=== PATIENT | female | born 1975 | race Caucasian/White ===

== ENCOUNTER 2018-10-31 05:44 | Inpatient (IN) | payer MEDICARE, OTHER ==
[2018-10-31 06:26] LABS: ADD MAN DIFF? NO
[2018-10-31 06:30] LABS: BASOPHIL # 0.1 10^3/ul (0.0-0.1); BASOPHILS % 0.9 % (0.0-2.0); EOSINOPHILS # 0.2 10^3/ul (0.0-0.5); HEMATOCRIT 40.3 % (37.0-47.0); LYMPHOCYTES # 3.3 10^3/ul (0.8-2.9); MEAN CORPUSCULAR HEMOGLOBIN 30.3 pg (29.0-33.0); MEAN CORPUSCULAR HGB CONC 32.3 g/dl (32.0-37.0); MEAN CORPUSCULAR VOLUME 93.9 fl (82.0-101.0); MEAN PLATELET VOLUME 10.9 fl (7.4-10.4); MONOCYTE # 0.8 10^3/ul (0.3-0.9); MONOCYTES % 8.8 % (0.0-11.0); NEUTROPHIL # 4.2 10^3/ul (1.6-7.5); NEUTROPHILS % 49.1 % (39.0-77.0); PLATELET COUNT 351 10^3/UL (140-415); RED BLOOD COUNT 4.29 10^6/ul (4.20-5.40)
[2018-10-31 06:30] LABS: WHITE BLOOD COUNT 8.6 10^3/ul (4.8-10.8)
[2018-10-31 06:52] LABS: INR 1.06; PARTIAL THROMBOPLASTIN TIME 28.5 Sec (23.0-35.0); PROTIME 13.9 Sec (11.9-14.9); PT RATIO 1.1
[2018-10-31] MEDS ORDERED: EPHEDrine 25 MG/5 ML SYG (07:00)
[2018-10-31] MEDS ORDERED: PHENYLephrine (100 MCG/ML) 10ML SYG (07:00)
[2018-10-31 07:03] LABS: ALANINE AMINOTRANSFERASE 27 IU/L (13-69); ALBUMIN/GLOBULIN RATIO 1.17; ALKALINE PHOSPHATASE 108 IU/L (42-121); ANION GAP 7 (5-13); ASPARTATE AMINO TRANSFERASE 33 IU/L (15-46); BILIRUBIN,INDIRECT 0.5 mg/dl (0-1.1); BILIRUBIN,TOTAL 0.5 mg/dl (0.2-1.3); BLOOD UREA NITROGEN 11 mg/dl (7-20); CALCIUM 9.4 mg/dl (8.4-10.2); CARBON DIOXIDE 30 mmol/L (21-31); CHLORIDE 108 mmol/L (97-110); CREATININE 0.62 mg/dl (0.44-1.00); Estimated GFR > 60 mL/min (>60); GLUCOSE 98 mg/dl (70-220); POTASSIUM 4.1 mmol/L (3.5-5.1); TOTAL PROTEIN 7.4 g/dl (6.1-8.1)
[2018-10-31 07:29] LABS: SODIUM 145 mmol/L (135-144)
[2018-10-31] MEDS ORDERED: CEFAZOLIN 1 GM INJ (07:49)
[2018-10-31] MEDS ORDERED: PROPOFOL 20 ML (07:49)
[2018-10-31] MEDS ORDERED: MIDAZOLAM 1 MG/ML 2 ML INJ (07:49)
[2018-10-31] MEDS ORDERED: ONDANSETRON 4 MG INJ (07:49)
[2018-10-31] MEDS ORDERED: ROCURONIUM 50 MG INJ (07:49)
[2018-10-31] MEDS ORDERED: SUCCINYLCHOLINE CHLORIDE 100 MG/5 ML SYG IV (07:49)
[2018-10-31] MEDS ORDERED: DEXAMETHASONE 4 MG/ML 5 ML INJ (07:49)
[2018-10-31] MEDS ORDERED: LIDOCAINE 1% (MDV) 20 ML INJ (07:49)
[2018-10-31] MEDS ORDERED: HYDROmorphONE 1 MG/5 ML IV SYRINGE IV (08:00)
[2018-10-31] MEDS: POLYMYXIN/BACITRACIN 1L IRRIG (09:30)
[2018-10-31] MEDS: GELATIN SIZE 100 SPONGE (09:30)
[2018-10-31] MEDS: THROMBIN 5000 UNIT VIAL (09:30)
[2018-10-31] MEDS: ROPIVACAINE 0.5 % 30 ML VIAL (09:30)
[2018-10-31] MEDS: SURGIFOAM POWDER 1 GM KIT (09:30)
[2018-10-31] MEDS ORDERED: FENTAnyl 50 MCG/ML VIAL (11:06)
[2018-10-31] MEDS: HYDROmorphONE 1 MG/5 ML IV SYRINGE IV ×2 (11:26→11:35)
[2018-10-31] MEDS ORDERED: ONDANSETRON 4 MG INJ IV (11:30)
[2018-10-31] MEDS ORDERED: ACETAMINOPHEN 325 MG TAB PO (11:30)
[2018-10-31] MEDS ORDERED: AL HYDROX/MG HYDROX/SIMETH 30 ML CUP PO (11:30)
[2018-10-31] MEDS ORDERED: NALOXONE (0.4 MG/ML) INJ IV (11:30)
[2018-10-31] MEDS ORDERED: NACL 0.9% 3 ML SYG IV (11:30)
[2018-10-31] MEDS: HYDROCODONE/APAP (5/325) TAB PO ×2 (11:43→23:22)
[2018-10-31] MEDS ORDERED: HYDROmorphONE 0.2 MG/ML PCA (12:14)
[2018-10-31] MEDS: HYDROmorphONE 0.2 MG/ML PCA IV ×2 (12:25→21:19)
[2018-10-31] MEDS: NS + KCL 20 MEQ 1,000 ML IV ×2 (14:02→20:54)
[2018-10-31] MEDS: DOCUSATE SODIUM 100 MG CAP PO ×2 (14:14→20:54)
[2018-10-31] MEDS: CEFAZOLIN 2 GM/50 ML (PMX) 50 ML IVPB ×2 (16:35→20:53)
[2018-10-31] MEDS: HYDROmorphONE 1 MG/ML SYG IV (21:43)
[2018-11-01] MEDS: HYDROmorphONE 1 MG/ML SYG IV ×7 (01:36→21:03)
[2018-11-01] MEDS: HYDROCODONE/APAP (5/325) TAB PO ×2 (04:09→12:33)
[2018-11-01 05:45] LABS: HEMATOCRIT 31.9 % (37.0-47.0); HEMOGLOBIN 10.2 g/dl (12.0-16.0)
[2018-11-01] MEDS: CEFAZOLIN 2 GM/50 ML (PMX) 50 ML IVPB ×3 (05:51→21:00)
[2018-11-01 06:14] LABS: ANION GAP 4 (5-13); BLOOD UREA NITROGEN 10 mg/dl (7-20); CALCIUM 8.5 mg/dl (8.4-10.2); CARBON DIOXIDE 30 mmol/L (21-31); CHLORIDE 107 mmol/L (97-110); Estimated GFR > 60 mL/min (>60); GLUCOSE 85 mg/dl (70-220); POTASSIUM 4.3 mmol/L (3.5-5.1); SODIUM 141 mmol/L (135-144)
[2018-11-01] MEDS: DOCUSATE SODIUM 100 MG CAP PO ×2 (08:17→20:59)
[2018-11-01] MEDS: KETOROLAC 30 MG INJ IV ×4 (09:21→20:59)
[2018-11-01] MEDS: NS + KCL 20 MEQ 1,000 ML IV (10:35)
[2018-11-02] MEDS: KETOROLAC 30 MG INJ IV ×6 (00:59→21:06)
[2018-11-02] MEDS: HYDROmorphONE 1 MG/ML SYG IV ×11 (01:00→23:07)
[2018-11-02] MEDS: HYDROmorphONE 0.2 MG/ML PCA IV ×3 (04:32→22:27)
[2018-11-02] MEDS: CEFAZOLIN 2 GM/50 ML (PMX) 50 ML IVPB ×2 (05:01→13:42)
[2018-11-02] MEDS: DOCUSATE SODIUM 100 MG CAP PO ×2 (09:22→21:05)
[2018-11-03] MEDS: HYDROmorphONE 1 MG/ML SYG IV ×11 (01:23→22:10)
[2018-11-03] MEDS: KETOROLAC 30 MG INJ IV ×2 (01:44→05:33)
[2018-11-03] MEDS: HYDROmorphONE 0.2 MG/ML PCA IV ×3 (04:19→18:02)
[2018-11-03] MEDS: DOCUSATE SODIUM 100 MG CAP PO ×2 (08:39→20:04)
[2018-11-04] MEDS: HYDROmorphONE 1 MG/ML SYG IV ×12 (00:09→23:18)
[2018-11-04] MEDS: HYDROmorphONE 0.2 MG/ML PCA IV ×3 (01:57→17:20)
[2018-11-04] MEDS: DOCUSATE SODIUM 100 MG CAP PO ×2 (09:12→20:34)
[2018-11-05] MEDS: HYDROmorphONE 0.2 MG/ML PCA IV (01:18)
[2018-11-05] MEDS: HYDROmorphONE 1 MG/ML SYG IV ×6 (01:24→11:52)
[2018-11-05 05:14] LABS: ADD MAN DIFF? NO
[2018-11-05 05:18] LABS: BASOPHILS % 0.6 % (0.0-2.0); EOSINOPHILS # 0.5 10^3/ul (0.0-0.5); EOSINOPHILS % 7.1 % (0.0-7.0); HEMATOCRIT 33.5 % (37.0-47.0); HEMOGLOBIN 10.6 g/dl (12.0-16.0); LYMPHOCYTES # 2.6 10^3/ul (0.8-2.9); LYMPHOCYTES % 37.5 % (15.0-51.0); MEAN CORPUSCULAR HEMOGLOBIN 29.9 pg (29.0-33.0); MEAN CORPUSCULAR HGB CONC 31.6 g/dl (32.0-37.0); MEAN CORPUSCULAR VOLUME 94.6 fl (82.0-101.0); MEAN PLATELET VOLUME 10.7 fl (7.4-10.4); MONOCYTE # 0.7 10^3/ul (0.3-0.9); MONOCYTES % 9.9 % (0.0-11.0); NEUTROPHIL # 3.1 10^3/ul (1.6-7.5); NEUTROPHILS % 44.8 % (39.0-77.0); PLATELET COUNT 331 10^3/UL (140-415); RED BLOOD COUNT 3.54 10^6/ul (4.20-5.40); RED CELL DISTRIBUTION WIDTH 12.7 % (11.5-14.5)
[2018-11-05 05:18] LABS: WHITE BLOOD COUNT 6.9 10^3/ul (4.8-10.8)
[2018-11-05 05:39] LABS: ANION GAP 5 (5-13); BLOOD UREA NITROGEN 10 mg/dl (7-20); CALCIUM 8.6 mg/dl (8.4-10.2); CARBON DIOXIDE 34 mmol/L (21-31); CHLORIDE 101 mmol/L (97-110); CREATININE 0.57 mg/dl (0.44-1.00); Estimated GFR > 60 mL/min (>60); GLUCOSE 97 mg/dl (70-220); POTASSIUM 4.3 mmol/L (3.5-5.1); SODIUM 140 mmol/L (135-144)
[2018-11-05] MEDS: DOCUSATE SODIUM 100 MG CAP PO ×2 (07:53→20:06)
[2018-11-05] MEDS: HYDROCODONE/APAP (5/325) TAB PO (10:50)
[2018-11-05] MEDS: HYDROmorphONE 2 MG/ML SYG IV ×5 (13:51→22:13)
[2018-11-05] MEDS ORDERED: HYDROmorphONE 2 MG TAB PO (16:00)
[2018-11-06] MEDS: HYDROmorphONE 2 MG/ML SYG IV ×12 (00:14→23:27)
[2018-11-06] MEDS: DOCUSATE SODIUM 100 MG CAP PO ×2 (09:00→20:58)
[2018-11-06] MEDS ORDERED: BISACODYL (EC) 5 MG TAB PO (23:00)
[2018-11-07] MEDS: HYDROmorphONE 2 MG/ML SYG IV ×11 (01:30→22:01)
[2018-11-07] MEDS: DOCUSATE SODIUM 100 MG CAP PO ×2 (08:54→20:52)
[2018-11-08] MEDS: HYDROmorphONE 2 MG/ML SYG IV ×12 (02:02→22:18)
[2018-11-08] MEDS: DOCUSATE SODIUM 100 MG CAP PO ×2 (08:44→20:23)
[2018-11-08] MEDS: FERROUS SULFATE (EC) 325 MG TAB PO (11:59)
[2018-11-09] MEDS: HYDROmorphONE 2 MG/ML SYG IV ×10 (00:22→18:42)
[2018-11-09 05:33] LABS: ADD MAN DIFF? NO
[2018-11-09 05:43] LABS: BASOPHIL # 0.1 10^3/ul (0.0-0.1); BASOPHILS % 0.9 % (0.0-2.0); EOSINOPHILS # 0.6 10^3/ul (0.0-0.5); EOSINOPHILS % 8.8 % (0.0-7.0); HEMATOCRIT 33.1 % (37.0-47.0); HEMOGLOBIN 10.5 g/dl (12.0-16.0); LYMPHOCYTES # 2.9 10^3/ul (0.8-2.9); MEAN CORPUSCULAR HEMOGLOBIN 29.9 pg (29.0-33.0); MEAN CORPUSCULAR HGB CONC 31.7 g/dl (32.0-37.0); MEAN CORPUSCULAR VOLUME 94.3 fl (82.0-101.0); MEAN PLATELET VOLUME 10.6 fl (7.4-10.4); MONOCYTE # 0.6 10^3/ul (0.3-0.9); MONOCYTES % 9.4 % (0.0-11.0); NEUTROPHIL # 2.5 10^3/ul (1.6-7.5); NEUTROPHILS % 37.8 % (39.0-77.0); PLATELET COUNT 402 10^3/UL (140-415); RED BLOOD COUNT 3.51 10^6/ul (4.20-5.40); RED CELL DISTRIBUTION WIDTH 12.6 % (11.5-14.5)
[2018-11-09 05:43] LABS: WHITE BLOOD COUNT 6.7 10^3/ul (4.8-10.8)
[2018-11-09 06:11] LABS: ANION GAP 5 (5-13); BLOOD UREA NITROGEN 10 mg/dl (7-20); CALCIUM 8.9 mg/dl (8.4-10.2); CARBON DIOXIDE 34 mmol/L (21-31); CHLORIDE 102 mmol/L (97-110); CREATININE 0.55 mg/dl (0.44-1.00); Estimated GFR > 60 mL/min (>60); GLUCOSE 89 mg/dl (70-220); SODIUM 141 mmol/L (135-144)
[2018-11-09] MEDS: FERROUS SULFATE (EC) 325 MG TAB PO (08:48)
[2018-11-09] MEDS: DOCUSATE SODIUM 100 MG CAP PO (08:48)
== END 2018-11-09 19:20 | disposition home or self-care (01) | DRG 454 ==
LOC: REC 05:44 → 6WM 13:22 → MS1 11-06 13:38
PROC: 0SG00AJ Fusion of Lumbar Vertebral Joint with Interbody Fusion Device, Posterior Approach, Anterior Column, Open Approach (ICD-10-PCS; principal; 2018-10-31 07:30)
PROC: 0SG03K1 Fusion of Lumbar Vertebral Joint with Nonautologous Tissue Substitute, Posterior Approach, Posterior Column, Percutaneous Approach (ICD-10-PCS; 2018-10-31 07:30)
PROC: 0SB20ZZ Excision of Lumbar Vertebral Disc, Open Approach (ICD-10-PCS; 2018-10-31 07:30)
PROC: 01NB0ZZ Release Lumbar Nerve, Open Approach (ICD-10-PCS; 2018-10-31 07:30)
PROC: 0SP304Z Removal of Internal Fixation Device from Lumbosacral Joint, Open Approach (ICD-10-PCS; 2018-10-31 07:30)
PROC: 0SG33K1 Fusion of Lumbosacral Joint with Nonautologous Tissue Substitute, Posterior Approach, Posterior Column, Percutaneous Approach (ICD-10-PCS; 2018-10-31 07:30)
PROC: 01BB0ZZ Excision of Lumbar Nerve, Open Approach (ICD-10-PCS; 2018-10-31 07:30)
PROC: 4A11X4G Monitoring of Peripheral Nervous Electrical Activity, Intraoperative, External Approach (ICD-10-PCS; 2018-10-31 07:30)
DX: M47.26 Other spondylosis with radiculopathy, lumbar region (principal); D62 Acute posthemorrhagic anemia; E88.2 Lipomatosis, not elsewhere classified; E66.9 Obesity, unspecified; F32.9 Major depressive disorder, single episode, unspecified; G89.18 Other acute postprocedural pain; I10 Essential (primary) hypertension; Z68.27 Body mass index [BMI] 27.0-27.9, adult; Z98.1 Arthrodesis status; Z98.84 Bariatric surgery status
CPT/HCPCS: 71045; 72100; 72131; 80048; 80053; 85014; 85018; 85025; 85610; 85730; 86850; 86900; 86901; 87086; 88300; 88304; 88311; 93005; 97110; 97116; 97161; 97530

== ENCOUNTER 2018-11-16 18:05 | Emergency (ER) | payer MEDICARE, OTHER ==
[2018-11-16] MEDS: ONDANSETRON (ODT) 4 MG TAB ODT (20:34)
[2018-11-16] MEDS: HYDROmorphONE 2 MG/ML SYG IM (20:35)
[2018-11-16] MEDS: KETOROLAC 30 MG INJ IM ×2 (22:17→22:27)
== END 2018-11-16 22:20 | disposition home or self-care (01) ==
LOC: FTE 22:20
DX: G89.18 Other acute postprocedural pain (principal); M54.41 Lumbago with sciatica, right side
CPT/HCPCS: 72131; 96372; 99285-25

== ENCOUNTER 2018-11-20 16:05 | Inpatient (IN) | payer MEDICARE, OTHER ==
[2018-11-20 20:37] LABS: ADD MAN DIFF? NO
[2018-11-20 20:39] LABS: WHITE BLOOD COUNT 6.7 10^3/ul (4.8-10.8)
[2018-11-20 20:39] LABS: BASOPHIL # 0.1 10^3/ul (0.0-0.1); EOSINOPHILS # 0.6 10^3/ul (0.0-0.5); EOSINOPHILS % 8.9 % (0.0-7.0); HEMATOCRIT 34.8 % (37.0-47.0); HEMOGLOBIN 11.1 g/dl (12.0-16.0); LYMPHOCYTES % 44.9 % (15.0-51.0); MEAN CORPUSCULAR HEMOGLOBIN 29.8 pg (29.0-33.0); MEAN CORPUSCULAR HGB CONC 31.9 g/dl (32.0-37.0); MEAN CORPUSCULAR VOLUME 93.3 fl (82.0-101.0); MEAN PLATELET VOLUME 10.2 fl (7.4-10.4); MONOCYTE # 0.4 10^3/ul (0.3-0.9); MONOCYTES % 6.3 % (0.0-11.0); NEUTROPHIL # 2.6 10^3/ul (1.6-7.5); NEUTROPHILS % 38.6 % (39.0-77.0); PLATELET COUNT 458 10^3/UL (140-415); RED BLOOD COUNT 3.73 10^6/ul (4.20-5.40); RED CELL DISTRIBUTION WIDTH 12.6 % (11.5-14.5)
[2018-11-20] MEDS: HYDROmorphONE 1 MG/ML SYG IV (20:40)
[2018-11-20] MEDS: LACTATED RINGER'S 1,000 ML IV (20:40)
[2018-11-20 20:59] LABS: ANION GAP 7 (5-13); BLOOD UREA NITROGEN 9 mg/dl (7-20); CALCIUM 8.6 mg/dl (8.4-10.2); CARBON DIOXIDE 30 mmol/L (21-31); CHLORIDE 105 mmol/L (97-110); CREATININE 0.72 mg/dl (0.44-1.00); Estimated GFR > 60 mL/min (>60); GLUCOSE 89 mg/dl (70-220); POTASSIUM 3.8 mmol/L (3.5-5.1); SODIUM 142 mmol/L (135-144)
[2018-11-20 21:07] LABS: INR 1.04; PROTIME 13.7 Sec (11.9-14.9); PT RATIO 1.1
[2018-11-20 21:08] LABS: PARTIAL THROMBOPLASTIN TIME 28.6 Sec (23.0-35.0)
[2018-11-20] MEDS: FAMOTIDINE 20 MG INJ IV (21:23)
[2018-11-20] MEDS ORDERED: NACL 0.9% 3 ML SYG IV (21:30)
[2018-11-20] MEDS ORDERED: ONDANSETRON 4 MG INJ IV (21:30)
[2018-11-20 21:57] LABS: ADD UMIC YES; UR ASCORBIC ACID NEGATIVE (NEGATIVE); UR BILIRUBIN (Dip) NEGATIVE (NEGATIVE); UR BLOOD (Dip) 1+ mg/dL (NEGATIVE); UR CLARITY CLEAR (CLEAR); UR COLOR YELLOW (YELLOW); UR GLUCOSE (Dip) NEGATIVE (NEGATIVE); UR KETONES (Dip) NEGATIVE (NEGATIVE); UR LEUKOCYTE ESTERASE (Dip) 2+ Leu/ul (NEGATIVE); UR NITRITE (Dip) NEGATIVE (NEGATIVE); UR RBC 4 /HPF (0-5); UR SPECIFIC GRAVITY (Dip) 1.012 (1.003-1.030); UR SQUAMOUS EPITHELIAL CELL FEW /HPF (FEW); UR TOTAL PROTEIN (Dip) NEGATIVE (NEGATIVE); UR UROBILINOGEN (Dip) NEGATIVE (NEGATIVE); UR WBC 42 /HPF (0-5)
[2018-11-20] MEDS: HYDROmorphONE 0.5 MG/0.5 ML SYG IV (23:00)
[2018-11-21] MEDS: HYDROmorphONE 0.5 MG/0.5 ML SYG IV (00:30)
[2018-11-21] MEDS: HYDROmorphONE 1 MG/ML SYG IV ×6 (04:39→21:36)
[2018-11-21 08:10] LABS: ADD MAN DIFF? NO
[2018-11-21 08:18] LABS: WHITE BLOOD COUNT 6.4 10^3/ul (4.8-10.8)
[2018-11-21 08:18] LABS: BASOPHIL # 0.1 10^3/ul (0.0-0.1); BASOPHILS % 0.9 % (0.0-2.0); EOSINOPHILS # 0.7 10^3/ul (0.0-0.5); EOSINOPHILS % 10.1 % (0.0-7.0); HEMATOCRIT 29.7 % (37.0-47.0); HEMOGLOBIN 9.6 g/dl (12.0-16.0); LYMPHOCYTES # 2.9 10^3/ul (0.8-2.9); LYMPHOCYTES % 45.2 % (15.0-51.0); MEAN CORPUSCULAR HEMOGLOBIN 30.6 pg (29.0-33.0); MEAN CORPUSCULAR HGB CONC 32.3 g/dl (32.0-37.0); MEAN CORPUSCULAR VOLUME 94.6 fl (82.0-101.0); MEAN PLATELET VOLUME 10.8 fl (7.4-10.4); MONOCYTE # 0.5 10^3/ul (0.3-0.9); MONOCYTES % 7.5 % (0.0-11.0); NEUTROPHIL # 2.3 10^3/ul (1.6-7.5); PLATELET COUNT 361 10^3/UL (140-415); RED BLOOD COUNT 3.14 10^6/ul (4.20-5.40); RED CELL DISTRIBUTION WIDTH 12.7 % (11.5-14.5)
[2018-11-21 08:39] LABS: ALANINE AMINOTRANSFERASE 15 IU/L (13-69); ALBUMIN 2.9 g/dl (3.3-4.9); ALKALINE PHOSPHATASE 87 IU/L (42-121); ANION GAP 7 (5-13); ASPARTATE AMINO TRANSFERASE 18 IU/L (15-46); BILIRUBIN,INDIRECT 0.3 mg/dl (0-1.1); BILIRUBIN,TOTAL 0.3 mg/dl (0.2-1.3); BLOOD UREA NITROGEN 8 mg/dl (7-20); CALCIUM 8.5 mg/dl (8.4-10.2); CARBON DIOXIDE 30 mmol/L (21-31); CHLORIDE 106 mmol/L (97-110); CREATININE 0.56 mg/dl (0.44-1.00); Estimated GFR > 60 mL/min (>60); GLUCOSE 133 mg/dl (70-220); POTASSIUM 3.5 mmol/L (3.5-5.1); SODIUM 143 mmol/L (135-144); TOTAL PROTEIN 5.8 g/dl (6.1-8.1)
[2018-11-21] MEDS: FAMOTIDINE 20 MG INJ IV (08:39)
[2018-11-21] MEDS: ENOXAPARIN 30 MG/0.3 ML SYG SC (08:42)
[2018-11-21 11:33] LABS: HEMOGLOBIN A1C 5.4 % (0-5.9)
[2018-11-21] MEDS: FAMOTIDINE 20 MG TAB PO (21:31)
[2018-11-21] MEDS: oxyCODONE (CR) 10 MG TAB [oxyCONTIN] PO (23:11)
[2018-11-22] MEDS: HYDROmorphONE 1 MG/ML SYG IV ×7 (00:42→15:13)
[2018-11-22 08:15] LABS: ADD MAN DIFF? NO
[2018-11-22 08:19] LABS: BASOPHIL # 0.1 10^3/ul (0.0-0.1); BASOPHILS % 0.7 % (0.0-2.0); EOSINOPHILS # 0.6 10^3/ul (0.0-0.5); EOSINOPHILS % 8.2 % (0.0-7.0); HEMATOCRIT 32.7 % (37.0-47.0); HEMOGLOBIN 10.5 g/dl (12.0-16.0); LYMPHOCYTES # 2.6 10^3/ul (0.8-2.9); LYMPHOCYTES % 36.2 % (15.0-51.0); MEAN CORPUSCULAR HGB CONC 32.1 g/dl (32.0-37.0); MEAN CORPUSCULAR VOLUME 93.4 fl (82.0-101.0); MEAN PLATELET VOLUME 10.9 fl (7.4-10.4); MONOCYTE # 0.5 10^3/ul (0.3-0.9); MONOCYTES % 7.2 % (0.0-11.0); NEUTROPHIL # 3.3 10^3/ul (1.6-7.5); NEUTROPHILS % 47.4 % (39.0-77.0); PLATELET COUNT 394 10^3/UL (140-415); RED CELL DISTRIBUTION WIDTH 12.7 % (11.5-14.5)
[2018-11-22 08:45] LABS: ANION GAP 3 (5-13); BLOOD UREA NITROGEN 8 mg/dl (7-20); CALCIUM 8.9 mg/dl (8.4-10.2); CARBON DIOXIDE 33 mmol/L (21-31); CHLORIDE 106 mmol/L (97-110); CHOL/HDL RATIO 2.7 RATIO; CHOLESTEROL 93 mg/dl (100-200); CREATININE 0.59 mg/dl (0.44-1.00); Estimated GFR > 60 mL/min (>60); GLUCOSE 89 mg/dl (70-220); HDL CHOLESTEROL 34 mg/dl (34-88); LDL CHOLESTEROL,CALCULATED 46 mg/dl; SODIUM 142 mmol/L (135-144); TRIGLYCERIDES 63 mg/dl (0-149)
[2018-11-22 09:00] LABS: FREE T4 (FREE THYROXINE) 0.79 ng/dl (0.64-1.79)
[2018-11-22 09:14] LABS: THYROID STIMULATING HORMONE 0.445 MIU/L (0.465-4.680)
[2018-11-22] MEDS: DOCUSATE SODIUM 100 MG CAP PO ×2 (09:40→21:11)
[2018-11-22] MEDS: FAMOTIDINE 20 MG TAB PO ×2 (09:40→21:11)
[2018-11-22] MEDS: oxyCODONE (CR) 10 MG TAB [oxyCONTIN] PO (09:40)
[2018-11-22] MEDS: ENOXAPARIN 30 MG/0.3 ML SYG SC (09:43)
[2018-11-22] MEDS ORDERED: POLYETHYLENE GLYCOL 17 GM PACKET (17:40)
[2018-11-22] MEDS ORDERED: HYDROmorphONE 0.2 MG/ML PCA (17:40)
[2018-11-22] MEDS ORDERED: METHYLPREDNISOLONE 40 MG INJ (17:40)
[2018-11-22] MEDS: HYDROmorphONE 0.2 MG/ML PCA IV ×2 (18:06→23:14)
[2018-11-22] MEDS: POLYETHYLENE GLYCOL 17 GM PACKET PO (18:26)
[2018-11-22] MEDS: METHYLPREDNISOLONE 125 MG INJ IV ×2 (18:29→22:00)
[2018-11-22] MEDS ORDERED: oxyCODONE (CR) 20 MG TAB [oxyCONTIN] PO (21:00)
[2018-11-22] MEDS: SENNA/DOCUSATE NA (8.6MG/50MG) TAB PO (21:11)
[2018-11-23] MEDS: HYDROmorphONE 0.2 MG/ML PCA IV ×5 (03:56→22:29)
[2018-11-23 05:36] LABS: ADD MAN DIFF? NO
[2018-11-23 05:44] LABS: BASOPHILS % 0.6 % (0.0-2.0); HEMATOCRIT 35.5 % (37.0-47.0); HEMOGLOBIN 11.4 g/dl (12.0-16.0); LYMPHOCYTES # 1.7 10^3/ul (0.8-2.9); LYMPHOCYTES % 24.6 % (15.0-51.0); MEAN CORPUSCULAR HEMOGLOBIN 29.6 pg (29.0-33.0); MEAN CORPUSCULAR HGB CONC 32.1 g/dl (32.0-37.0); MEAN CORPUSCULAR VOLUME 92.2 fl (82.0-101.0); MEAN PLATELET VOLUME 10.6 fl (7.4-10.4); MONOCYTE # 0.3 10^3/ul (0.3-0.9); MONOCYTES % 3.6 % (0.0-11.0); NEUTROPHIL # 4.9 10^3/ul (1.6-7.5); NEUTROPHILS % 70.8 % (39.0-77.0); PLATELET COUNT 446 10^3/UL (140-415); RED BLOOD COUNT 3.85 10^6/ul (4.20-5.40); RED CELL DISTRIBUTION WIDTH 12.7 % (11.5-14.5)
[2018-11-23] MEDS: METHYLPREDNISOLONE 125 MG INJ IV ×3 (06:08→21:46)
[2018-11-23 06:18] LABS: ANION GAP 6 (5-13); BLOOD UREA NITROGEN 8 mg/dl (7-20); CALCIUM 9.1 mg/dl (8.4-10.2); CARBON DIOXIDE 30 mmol/L (21-31); CHLORIDE 107 mmol/L (97-110); CREATININE 0.47 mg/dl (0.44-1.00); Estimated GFR > 60 mL/min (>60); GLUCOSE 113 mg/dl (70-220); POTASSIUM 4.2 mmol/L (3.5-5.1); SODIUM 143 mmol/L (135-144)
[2018-11-23 06:51] LABS: CHOL/HDL RATIO 2.4 RATIO; HDL CHOLESTEROL 44 mg/dl (34-88); LDL CHOLESTEROL,CALCULATED 56 mg/dl
[2018-11-23 06:51] LABS: CHOLESTEROL 109 mg/dl (100-200)
[2018-11-23 07:24] LABS: TRIGLYCERIDES 45 mg/dl (0-149)
[2018-11-23] MEDS: POLYETHYLENE GLYCOL 17 GM PACKET PO (09:00)
[2018-11-23] MEDS: FAMOTIDINE 20 MG TAB PO ×2 (09:19→20:27)
[2018-11-23] MEDS: DOCUSATE SODIUM 100 MG CAP PO ×2 (09:19→20:27)
[2018-11-23] MEDS: SENNA/DOCUSATE NA (8.6MG/50MG) TAB PO ×2 (09:19→20:27)
[2018-11-23] MEDS: ENOXAPARIN 30 MG/0.3 ML SYG SC (09:20)
[2018-11-23] MEDS: ACETAMINOPHEN 325 MG TAB PO (10:51)
[2018-11-23] MEDS: BENAZEPRIL 10 MG TAB PO (15:50)
[2018-11-24] MEDS: HYDROmorphONE 0.2 MG/ML PCA IV ×5 (03:02→22:18)
[2018-11-24] MEDS: METHYLPREDNISOLONE 125 MG INJ IV ×3 (05:12→22:19)
[2018-11-24] MEDS: SENNA/DOCUSATE NA (8.6MG/50MG) TAB PO ×2 (08:48→20:05)
[2018-11-24] MEDS: FAMOTIDINE 20 MG TAB PO ×2 (08:48→20:03)
[2018-11-24] MEDS: DOCUSATE SODIUM 100 MG CAP PO ×2 (08:48→20:03)
[2018-11-24] MEDS: BENAZEPRIL 10 MG TAB PO (08:50)
[2018-11-24] MEDS: ENOXAPARIN 30 MG/0.3 ML SYG SC (08:52)
[2018-11-24] MEDS: POLYETHYLENE GLYCOL 17 GM PACKET PO (08:53)
[2018-11-24] MEDS: ACETAMINOPHEN 325 MG TAB PO ×2 (13:53→20:03)
[2018-11-25] MEDS: HYDROmorphONE 0.2 MG/ML PCA IV ×4 (04:22→22:39)
[2018-11-25] MEDS: METHYLPREDNISOLONE 125 MG INJ IV ×3 (05:21→20:00)
[2018-11-25 08:25] LABS: ADD MAN DIFF? NO
[2018-11-25 08:29] LABS: BASOPHILS % 0.2 % (0.0-2.0); HEMATOCRIT 35.2 % (37.0-47.0); HEMOGLOBIN 11.3 g/dl (12.0-16.0); LYMPHOCYTES # 1.6 10^3/ul (0.8-2.9); MEAN CORPUSCULAR HEMOGLOBIN 30.1 pg (29.0-33.0); MEAN CORPUSCULAR HGB CONC 32.1 g/dl (32.0-37.0); MEAN CORPUSCULAR VOLUME 93.6 fl (82.0-101.0); MEAN PLATELET VOLUME 10.9 fl (7.4-10.4); MONOCYTE # 0.3 10^3/ul (0.3-0.9); MONOCYTES % 3.4 % (0.0-11.0); NEUTROPHILS % 77.8 % (39.0-77.0); PLATELET COUNT 409 10^3/UL (140-415); RED BLOOD COUNT 3.76 10^6/ul (4.20-5.40); RED CELL DISTRIBUTION WIDTH 12.5 % (11.5-14.5)
[2018-11-25 08:29] LABS: WHITE BLOOD COUNT 8.9 10^3/ul (4.8-10.8)
[2018-11-25 08:50] LABS: ANION GAP 7 (5-13); BLOOD UREA NITROGEN 11 mg/dl (7-20); CALCIUM 8.9 mg/dl (8.4-10.2); CARBON DIOXIDE 33 mmol/L (21-31); CHLORIDE 102 mmol/L (97-110); CREATININE 0.52 mg/dl (0.44-1.00); Estimated GFR > 60 mL/min (>60); GLUCOSE 108 mg/dl (70-220); POTASSIUM 4.3 mmol/L (3.5-5.1); SODIUM 142 mmol/L (135-144)
[2018-11-25] MEDS: POLYETHYLENE GLYCOL 17 GM PACKET PO (09:00)
[2018-11-25] MEDS: SENNA/DOCUSATE NA (8.6MG/50MG) TAB PO ×3 (09:00→20:00)
[2018-11-25] MEDS: BENAZEPRIL 10 MG TAB PO (09:18)
[2018-11-25] MEDS: FAMOTIDINE 20 MG TAB PO ×2 (09:18→20:00)
[2018-11-25] MEDS: DOCUSATE SODIUM 100 MG CAP PO ×2 (09:18→20:00)
[2018-11-25] MEDS: ENOXAPARIN 30 MG/0.3 ML SYG SC (09:19)
[2018-11-25] MEDS: HYDROmorphONE 0.5 MG/0.5 ML SYG IV ×2 (12:04→19:57)
[2018-11-26] MEDS: ZOLPIDEM 5 MG TAB PO ×2 (00:51→21:40)
[2018-11-26] MEDS: METHYLPREDNISOLONE 125 MG INJ IV ×3 (05:18→21:40)
[2018-11-26] MEDS: HYDROmorphONE 0.2 MG/ML PCA IV ×4 (05:18→19:56)
[2018-11-26] MEDS: POLYETHYLENE GLYCOL 17 GM PACKET PO ×2 (09:00→09:21)
[2018-11-26] MEDS: SENNA/DOCUSATE NA (8.6MG/50MG) TAB PO ×3 (09:00→20:12)
[2018-11-26] MEDS: BENAZEPRIL 10 MG TAB PO (09:20)
[2018-11-26] MEDS: DOCUSATE SODIUM 100 MG CAP PO ×2 (09:20→20:09)
[2018-11-26] MEDS: FAMOTIDINE 20 MG TAB PO ×2 (09:20→20:09)
[2018-11-26] MEDS: ENOXAPARIN 30 MG/0.3 ML SYG SC (09:24)
[2018-11-26] MEDS: DEXAMETHASONE 4 MG/ML 1 ML INJ IV ×2 (12:00→18:45)
[2018-11-26] MEDS ORDERED: GABAPENTIN (50 MG/ML PO SYG) PO (13:00)
[2018-11-26] MEDS ORDERED: GABAPENTIN (50 MG/ML PO SYG) NGT ×2 (13:00)
[2018-11-26] MEDS: GABAPENTIN 100 MG CAP PO ×2 (13:47→20:09)
[2018-11-26] MEDS: HYDROmorphONE 0.5 MG/0.5 ML SYG IV (20:05)
[2018-11-27] MEDS: DEXAMETHASONE 4 MG/ML 1 ML INJ IV ×4 (00:29→18:05)
[2018-11-27] MEDS: HYDROmorphONE 0.2 MG/ML PCA IV ×4 (00:52→15:46)
[2018-11-27] MEDS: POLYETHYLENE GLYCOL 17 GM PACKET PO (09:00)
[2018-11-27] MEDS: SENNA/DOCUSATE NA (8.6MG/50MG) TAB PO ×2 (09:47→21:00)
[2018-11-27] MEDS: DOCUSATE SODIUM 100 MG CAP PO ×2 (09:47→22:46)
[2018-11-27] MEDS: GABAPENTIN 100 MG CAP PO ×3 (09:48→22:46)
[2018-11-27] MEDS: BENAZEPRIL 10 MG TAB PO (09:48)
[2018-11-27] MEDS: FAMOTIDINE 20 MG TAB PO ×2 (09:48→22:46)
[2018-11-27] MEDS: ENOXAPARIN 30 MG/0.3 ML SYG SC (09:49)
[2018-11-27] MEDS: HYDROmorphONE 0.5 MG/0.5 ML SYG IV (15:57)
[2018-11-27] MEDS: HYDROmorphONE 1 MG/ML SYG IV ×2 (18:05→22:42)
[2018-11-27] MEDS: METHYLPREDNISOLONE ACET 80 MG/ML 1 ML INJ ×2 (21:00)
[2018-11-27] MEDS: ROPIVACAINE 0.5 % 30 ML VIAL INJ ×2 (21:00)
[2018-11-27] MEDS: ZOLPIDEM 5 MG TAB PO (23:30)
[2018-11-28] MEDS: DEXAMETHASONE 4 MG/ML 1 ML INJ IV ×4 (00:42→17:39)
[2018-11-28] MEDS: HYDROmorphONE 1 MG/ML SYG IV (05:50)
[2018-11-28] MEDS: HYDROmorphONE 0.2 MG/ML PCA IV ×5 (06:32→20:22)
[2018-11-28] MEDS: POLYETHYLENE GLYCOL 17 GM PACKET PO (09:00)
[2018-11-28] MEDS: ENOXAPARIN 30 MG/0.3 ML SYG SC (09:36)
[2018-11-28] MEDS: MULTIVITAMINS/MINERALS TAB PO (09:36)
[2018-11-28] MEDS: GABAPENTIN 100 MG CAP PO ×3 (09:37→21:24)
[2018-11-28] MEDS: BENAZEPRIL 10 MG TAB PO (09:37)
[2018-11-28] MEDS: FAMOTIDINE 20 MG TAB PO ×2 (09:37→21:24)
[2018-11-28] MEDS: DOCUSATE SODIUM 100 MG CAP PO ×2 (09:37→21:24)
[2018-11-28] MEDS: SENNA/DOCUSATE NA (8.6MG/50MG) TAB PO ×3 (09:37→21:26)
[2018-11-28] MEDS: ZOLPIDEM 5 MG TAB PO (22:10)
[2018-11-29] MEDS: DEXAMETHASONE 4 MG/ML 1 ML INJ IV ×3 (00:11→12:26)
[2018-11-29] MEDS: HYDROmorphONE 0.2 MG/ML PCA IV ×7 (00:16→23:13)
[2018-11-29] MEDS: KETOROLAC 30 MG INJ IV ×2 (06:18→22:25)
[2018-11-29] MEDS: MULTIVITAMINS/MINERALS TAB PO (08:54)
[2018-11-29] MEDS: ENOXAPARIN 30 MG/0.3 ML SYG SC (08:54)
[2018-11-29] MEDS: SENNA/DOCUSATE NA (8.6MG/50MG) TAB PO ×2 (08:54→19:54)
[2018-11-29] MEDS: DOCUSATE SODIUM 100 MG CAP PO ×2 (08:54→19:54)
[2018-11-29] MEDS: FAMOTIDINE 20 MG TAB PO ×2 (08:55→19:54)
[2018-11-29] MEDS: GABAPENTIN 100 MG CAP PO ×3 (08:55→19:55)
[2018-11-29] MEDS: POLYETHYLENE GLYCOL 17 GM PACKET PO (08:55)
[2018-11-29] MEDS: BENAZEPRIL 10 MG TAB PO (08:55)
[2018-11-29] MEDS: ZOLPIDEM 5 MG TAB PO (22:17)
[2018-11-30] MEDS: HYDROmorphONE 0.2 MG/ML PCA IV ×5 (04:02→20:48)
[2018-11-30] MEDS: KETOROLAC 30 MG INJ IV ×3 (07:04→19:41)
[2018-11-30] MEDS: POLYETHYLENE GLYCOL 17 GM PACKET PO (09:12)
[2018-11-30] MEDS: FAMOTIDINE 20 MG TAB PO ×2 (09:13→20:20)
[2018-11-30] MEDS: GABAPENTIN 100 MG CAP PO ×3 (09:13→20:20)
[2018-11-30] MEDS: SENNA/DOCUSATE NA (8.6MG/50MG) TAB PO ×2 (09:13→20:20)
[2018-11-30] MEDS: DOCUSATE SODIUM 100 MG CAP PO ×2 (09:13→20:19)
[2018-11-30] MEDS: ENOXAPARIN 30 MG/0.3 ML SYG SC (09:13)
[2018-11-30] MEDS: MULTIVITAMINS/MINERALS TAB PO (09:13)
[2018-11-30] MEDS: BENAZEPRIL 10 MG TAB PO (09:14)
[2018-11-30] MEDS: ZOLPIDEM 5 MG TAB PO (21:51)
[2018-12-01] MEDS: HYDROmorphONE 0.2 MG/ML PCA IV ×7 (01:44→23:29)
[2018-12-01] MEDS: KETOROLAC 30 MG INJ IV ×4 (01:49→20:11)
[2018-12-01] MEDS: BENAZEPRIL 10 MG TAB PO (09:00)
[2018-12-01] MEDS: POLYETHYLENE GLYCOL 17 GM PACKET PO (09:00)
[2018-12-01] MEDS: GABAPENTIN 100 MG CAP PO ×3 (09:03→20:09)
[2018-12-01] MEDS: SENNA/DOCUSATE NA (8.6MG/50MG) TAB PO ×2 (09:03→20:09)
[2018-12-01] MEDS: DOCUSATE SODIUM 100 MG CAP PO ×2 (09:04→20:09)
[2018-12-01] MEDS: FAMOTIDINE 20 MG TAB PO ×2 (09:04→20:09)
[2018-12-01] MEDS: MULTIVITAMINS/MINERALS TAB PO (09:04)
[2018-12-01] MEDS: ENOXAPARIN 30 MG/0.3 ML SYG SC (09:06)
[2018-12-01] MEDS: ZOLPIDEM 5 MG TAB PO (21:53)
[2018-12-02] MEDS: KETOROLAC 30 MG INJ IV (03:36)
[2018-12-02] MEDS: HYDROmorphONE 0.2 MG/ML PCA IV ×3 (04:12→11:39)
[2018-12-02] MEDS: POLYETHYLENE GLYCOL 17 GM PACKET PO (09:00)
[2018-12-02] MEDS: DOCUSATE SODIUM 100 MG CAP PO ×2 (09:00→20:32)
[2018-12-02] MEDS: SENNA/DOCUSATE NA (8.6MG/50MG) TAB PO ×2 (09:00→20:32)
[2018-12-02] MEDS: GABAPENTIN 100 MG CAP PO ×3 (09:04→20:31)
[2018-12-02] MEDS: FAMOTIDINE 20 MG TAB PO ×2 (09:05→20:31)
[2018-12-02] MEDS: MULTIVITAMINS/MINERALS TAB PO (09:05)
[2018-12-02] MEDS: BENAZEPRIL 10 MG TAB PO (09:05)
[2018-12-02] MEDS: ENOXAPARIN 30 MG/0.3 ML SYG SC (09:12)
[2018-12-02] MEDS: HYDROmorphONE 1 MG/ML SYG IV ×3 (15:34→22:28)
[2018-12-02] MEDS: oxyCODONE 5 MG TAB PO (15:39)
[2018-12-02] MEDS: oxyCODONE (CR) 10 MG TAB [oxyCONTIN] PO (20:32)
[2018-12-02] MEDS ORDERED: oxyCODONE 5 MG TAB PO (21:00)
[2018-12-02] MEDS: ZOLPIDEM 5 MG TAB PO (22:33)
[2018-12-03] MEDS: HYDROmorphONE 1 MG/ML SYG IV ×3 (01:26→07:39)
[2018-12-03 06:25] LABS: ADD MAN DIFF? NO
[2018-12-03 06:32] LABS: WHITE BLOOD COUNT 8.2 10^3/ul (4.8-10.8)
[2018-12-03 06:32] LABS: BASOPHILS % 0.2 % (0.0-2.0); EOSINOPHILS # 0.5 10^3/ul (0.0-0.5); EOSINOPHILS % 6.2 % (0.0-7.0); HEMATOCRIT 36.8 % (37.0-47.0); HEMOGLOBIN 11.7 g/dl (12.0-16.0); MEAN CORPUSCULAR HGB CONC 31.8 g/dl (32.0-37.0); MEAN CORPUSCULAR VOLUME 94.4 fl (82.0-101.0); MEAN PLATELET VOLUME 10.5 fl (7.4-10.4); MONOCYTE # 0.8 10^3/ul (0.3-0.9); MONOCYTES % 10.1 % (0.0-11.0); NEUTROPHIL # 3.8 10^3/ul (1.6-7.5); NEUTROPHILS % 46.1 % (39.0-77.0); PLATELET COUNT 330 10^3/UL (140-415); RED CELL DISTRIBUTION WIDTH 12.6 % (11.5-14.5)
[2018-12-03 07:28] LABS: ANION GAP 6 (5-13); BLOOD UREA NITROGEN 8 mg/dl (7-20); CALCIUM 8.5 mg/dl (8.4-10.2); CARBON DIOXIDE 33 mmol/L (21-31); CHLORIDE 103 mmol/L (97-110); CREATININE 0.56 mg/dl (0.44-1.00); Estimated GFR > 60 mL/min (>60); GLUCOSE 87 mg/dl (70-220); POTASSIUM 4.6 mmol/L (3.5-5.1); SODIUM 142 mmol/L (135-144)
[2018-12-03] MEDS: oxyCODONE (CR) 10 MG TAB [oxyCONTIN] PO (08:33)
[2018-12-03] MEDS: MULTIVITAMINS/MINERALS TAB PO (08:34)
[2018-12-03] MEDS: BENAZEPRIL 10 MG TAB PO (08:34)
[2018-12-03] MEDS: FAMOTIDINE 20 MG TAB PO (08:34)
[2018-12-03] MEDS: GABAPENTIN 100 MG CAP PO (08:35)
[2018-12-03] MEDS: DOCUSATE SODIUM 100 MG CAP PO (08:35)
[2018-12-03] MEDS: ENOXAPARIN 30 MG/0.3 ML SYG SC (09:00)
[2018-12-03] MEDS: SENNA/DOCUSATE NA (8.6MG/50MG) TAB PO (09:00)
[2018-12-03] MEDS: POLYETHYLENE GLYCOL 17 GM PACKET PO (09:00)
== END 2018-12-03 09:40 | disposition left against medical advice (07) | DRG 552 ==
LOC: E/R 16:05 → PP2 21:24
PROC: 3E0U3BZ Introduction of Anesthetic Agent into Joints, Percutaneous Approach (ICD-10-PCS; principal; 2018-11-27 20:00)
PROC: 3E0U33Z Introduction of Anti-inflammatory into Joints, Percutaneous Approach (ICD-10-PCS; 2018-11-27 20:00)
PROC: 3E0233Z Introduction of Anti-inflammatory into Muscle, Percutaneous Approach (ICD-10-PCS; 2018-11-27 20:00)
PROC: 3E023BZ Introduction of Anesthetic Agent into Muscle, Percutaneous Approach (ICD-10-PCS; 2018-11-27 20:00)
DX: M46.1 Sacroiliitis, not elsewhere classified (principal); F11.20 Opioid dependence, uncomplicated; N39.0 Urinary tract infection, site not specified; I10 Essential (primary) hypertension; E78.5 Hyperlipidemia, unspecified; E66.9 Obesity, unspecified; F32.9 Major depressive disorder, single episode, unspecified; G89.18 Other acute postprocedural pain; M54.5 Low back pain; M25.552 Pain in left hip; R00.1 Bradycardia, unspecified; R94.31 Abnormal electrocardiogram [ECG] [EKG]; Z98.1 Arthrodesis status; Z98.84 Bariatric surgery status; Z68.29 Body mass index [BMI] 29.0-29.9, adult
CPT/HCPCS: 36415; 72131; 72158; 72195; 73500; 73721; 80048; 80053; 80061; 81001; 83036; 84439; 84443; 84703; 85025; 85610; 85730; 87040-91; 93005; 93306; 96374; 99285-25; G0378